=== PATIENT | female | born 1960 | race Caucasian/White ===

== ENCOUNTER → 2016-09-28 | Outpatient (CLI) | payer OTHER, MEDICARE ==
[~2016-09-28] MED LIST: ATR25 PO; CHOLTAB3 PO; COEN75CA PO; COQ10; CPR250 PO; CYAN100T PO; DSWCR; FISHCAP2 PO; MAGN250T9 PO; MAGNESIUM; MULT-506 PO; OXYC7.5T78 PO; PRAV20TA PO; PRN10125 PO; TRIA0.0216
== END | disposition home or self-care (01) ==
LOC: C.PATHSPEC 17:49
PROVIDERS: ATTEND Plastic Surgery
DX: C43.9 Malignant melanoma of skin, unspecified (principal); L82.1 Other seborrheic keratosis; D22.9 Melanocytic nevi, unspecified

== ENCOUNTER 2017-12-21 19:43 | Emergency (ER) | payer OTHER, MEDICARE ==
[~2017-12-21] VITALS: Ht 129.5 cm; Wt 80.7 kg
[~2017-12-21 19:43] MED LIST changes: +CIPR250T26 PO; -CPR250 PO; -DSWCR; +DSWCR TD
[2017-12-21 19:55] VITALS: TEMP 37; Ht 129.5 cm; Wt 80.7 kg
[2017-12-21] MEDS ORDERED: HYDR-3124 PO (20:48)
[2017-12-21] MEDS ORDERED: LSN/10125 PO (20:48)
[2017-12-21] MEDS ORDERED: TRMO2580 TOP (20:48)
[2017-12-21] MEDS ORDERED: CITA40TA4 PO (20:48)
[2017-12-21] MEDS ORDERED: GLC/500 PO (20:48)
[2017-12-21] MEDS ORDERED: ERGO1TAB10 PO (20:48)
--- NOTE | 2017-12-21 20:52 | DIAGNOSTIC IMAGING REPORT ---
CT SCAN OF THE BRAIN WITHOUT IV CONTRAST CLINICAL HISTORY: Head injury. COMPARISON STUDY: CT of the brain dated 08/13/2008. TECHNIQUE: Unenhanced axial CT scan of the brain is performed from the vertex to the skull base. A dose lowering technique was utilized adhering to the principles of ALARA. CT DOSE: 614.27 mGy.cm FINDINGS: Brain parenchyma: The brain parenchyma is normal in appearance. There is no hemorrhage, mass effect, or evidence of acute territorial ischemia by CT criteria. Reddy-white matter is preserved. No extra-axial fluid collection is seen. Ventricles, sulci, cisterns: Normal in configuration. Intracranial vasculature: The visualized intracranial vasculature at the skull base is normal in appearance. Calvarium: The skeletal structures are osteopenic. No depressed calvarial fracture is seen. Sinuses and mastoids: A retention cyst is noted in the left maxillary antrum. The remaining visualized paranasal sinuses are clear. The mastoid air cells are well pneumatized. Orbits: The bony orbits are grossly intact. Bilateral retinal calcifications are noted. IMPRESSION: There is no hemorrhage, mass effect, or evidence of acute territorial ischemia by CT criteria. Electronically signed by: Rasheed Taylor M.D. 12/21/2017 8:50 PM Dictated Date/Time: 12/21/2017 8:47 PM
--- NOTE | 2017-12-21 20:59 | EMERGENCY ROOM VISIT NOTE ---
History Report prepared by Eric: Kamala Javed Under the Supervision of: Dr. Emmanuel Harrington D.O. 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 The patient presents to the ED by EMS. She was standing in her bedroom with her walker. She was turning when her ankles gave out. She fell and hit her head on the bed. She fell to the floor and broke her glasses. She currently feels well. Her hands are tingling which she has periodically. Her right foot is cramping. She notes that she has been having a difficult time getting into cars recently. She denies any LOC. She lives alone. 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 Review of Systems See HPI for pertinent positives & negatives. A total of 10 systems reviewed and were otherwise negative. Past Medical & Surgical Medical Problems: (1) Achondroplastic dwarfism (2) Chest pain radiating to arm (3) Heart problem (4) History of back problems (5) HLD (hyperlipidemia) (6) HTN (hypertension) (7) Leucocytosis Surgical Problems: (1) H/O laminectomy (2) S/P bilateral breast reduction Family History FH: breast cancer in first degree relative Heart disease Social History Smoking Status: Never Smoker Alcohol Use: none Marital Status: single Housing Status: lives alone Occupation Status: disabled Current/Historical Medications Scheduled Citalopram (Citalopram Hydrobromide), 1 TAB PO DAILY Coenzyme Q10 (Ubidecarenone) (Co Q-10), 1 TAB PO DAILY Cyanocobalamin (Vitamin B-12), 100 MCG PO DAILY Desonide 0.05% (Desowen 0.05%), 1 APPLN TD BID Ergocalciferol (Vitamin D2), 400 UNITS PO QAM Fish Oil-Coenzyme Q10 (Fish Oil Plus Co Q-10), 1 CAP PO DAILY Hctz/Lisinopril (Lisinopril/Hctz 10/12.5 Mg), 1 TAB PO QAM Magnesium (Magnesium), 250 MG PO DAILY Metformin Hcl (Glucophage), 500 MG PO BIDM Multivitamin (Multivitamin), 1 TAB PO DAILY Pravastatin (Pravachol ), 40 MG PO HS Triamcinolone Acetonide (Topic (Triamcinolone Acet 0.025%), 1 APPLN TOP BID Scheduled PRN Hydroxyzine Hcl (Atarax), 25 MG PO DIRECTED PRN for PRN Allergies Coded Allergies: Penicillins (Verified Allergy, Mild, RASH, 12/21/17) Amoxicillin (Verified Allergy, Unknown, -, 12/21/17) Clavulanic Acid (Verified Allergy, Unknown, -, 12/21/17) Dexamethasone (Verified Allergy, Unknown, unknown, 12/21/17) Latex (Verified Allergy, Unknown, UNKNOWN, 12/21/17) Neomycin (Verified Allergy, Unknown, unknown, 12/21/17) Polymyxin B (Verified Allergy, Unknown, unknown, 12/21/17) Rizatriptan (Verified Allergy, Unknown, -, 12/21/17) Gabapentin (Verified Adverse Reaction, Intermediate, dizziness, lightheaded, 12/21/17) per pt report today Physical Exam Vital Signs Date Time Temp Pulse Resp B/P (MAP) Pulse Ox O2 Delivery O2 Flow Rate FiO2 12/21/17 21:01 99 16 110/86 97 Room Air 12/21/17 19:57 109 118/71 99 102 117/66 120 132/82 12/21/17 19:57 103 12/21/17 19:55 37.0 109 16 118/71 97 Room Air Physical Exam CONSTITUTIONAL/VITAL SIGNS: Reviewed / noted above. GENERAL: Non-toxic in appearance. INTEGUMENTARY: Warm, dry, and [place]. HEAD: Small contusion to the left forehead. EYES: without scleral icterus or trauma. ENT/OROPHARYNX: clear and moist. LYMPHADENOPATHY/NECK: Is supple without lymphadenopathy or meningismus. RESPIRATORY: Lungs clear and equal. CARDIOVASCULAR: Regular rate and rhythm. GI/ABDOMEN: Soft and nontender. No organomegaly or pulsatile mass. No rebound or guarding. Normal bowel sounds. EXTREMITIES: Warm and well perfused. BACK: No CVA tenderness. NEUROLOGICAL: Intact without focal deficits. PSYCHIATRIC: normal affect. MUSCULOSKELETAL: Normally developed with good muscle tone. Medical Decision & Procedures ER Provider Diagnostic Interpretation: Radiology results as stated below per my review and radiologist interpretation: CT SCAN OF THE BRAIN WITHOUT IV CONTRAST CLINICAL HISTORY: Head injury. COMPARISON STUDY: CT of the brain dated 08/13/2008. TECHNIQUE: Unenhanced axial CT scan of the brain is performed from the vertex to the skull base. A dose lowering technique was utilized adhering to the principles of ALARA. CT DOSE: 614.27 mGy.cm FINDINGS: Brain parenchyma: The brain parenchyma is normal in appearance. There is no hemorrhage, mass effect, or evidence of acute territorial ischemia by CT criteria. Reddy-white matter is preserved. No extra-axial fluid collection is seen. Ventricles, sulci, cisterns: Normal in configuration. Intracranial vasculature: The visualized intracranial vasculature at the skull base is normal in appearance. Calvarium: The skeletal structures are osteopenic. No depressed calvarial fracture is seen. Sinuses and mastoids: A retention cyst is noted in the left maxillary antrum. The remaining visualized paranasal sinuses are clear. The mastoid air cells are well pneumatized. Orbits: The bony orbits are grossly intact. Bilateral retinal calcifications are noted. IMPRESSION: There is no hemorrhage, mass effect, or evidence of acute territorial ischemia by CT criteria. Electronically signed by: Rasheed Taylor M.D. 12/21/2017 8:50 PM Dictated Date/Time: 12/21/2017 8:47 PM ECG Per My Interpretation Indication: other (fall) Rate (beats per minute): 98 Rhythm: sinus with SA Findings: no ectopy, other (no ST elevation) ED Course 2014: Previous medical records were reviewed. The patient was evaluated in room C10. A complete history and physical examination was performed. 2104: On reevaluation, the patient is resting comfortably. I discussed the results and findings with the patient. She verbalized agreement of the treatment plan. She was discharged home. Medical Decision Differentials include: Close head injury, intracranial bleed, facial trauma, cervical spine trauma, chest and thoracic trauma, abdominal and intra-abdominal trauma, spine neurologic trauma, and extremity trauma. This is a 57-year-old female who presents to the ED with a chief complaint of a fall and striking her head. The patient states that her ankles gave out when she was turning causing her to fall hitting her head on the bed frame. She has a small bump on the forehead on the left. The patient denies loss of consciousness. She denies any other injuries. She does have a small contusion left forehead region on exam. Her vital signs are stable. Her exam was otherwise unremarkable. CT scan of the brain did not show acute process. She is felt to be stable for discharge. Head Trauma GCS Score: 15 Medication Reconcilliation Current Medication List: was personally reviewed by me Blood Pressure Screening Patient's blood pressure: Normal blood pressure Blood pressure disposition: Did not require urgent referral Impression Primary Impression: Fall Additional Impression: Head trauma Scribe Attestation The scribe's documentation has been prepared under my direction and personally reviewed by me in its entirety. I confirm that the note above accurately reflects all work, treatment, procedures, and medical decision making performed by me. Departure Information Dispostion Home / Self-Care Referrals No Doctor, Assigned (PCP) Patient Instructions My [facility] Additional Instructions CAT scan did not show brain injury or intracranial bleeding. Follow-up with your doctor for further care and evaluation in 1-2 days as needed. Return to the emergency department for worsening or new symptoms or any concerns. You have been examined and treated today on an emergency basis only. This is not a substitute for, or an effort to provide, complete comprehensive medical care. It is impossible to recognize and treat all injuries or illnesses in a single emergency department visit. It is therefore important that you follow up closely with your doctor. Call as soon as possible for an appointment. Problem Qualifiers
[2017-12-21 21:01] VITALS: PULSE 99
[2017-12-21 21:42] VITALS: BP 137/79; O2SAT 96
== END 2017-12-21 21:42 | disposition home or self-care (01) ==
LOC: C.EDC 19:43
DX: S00.93XA Contusion of unspecified part of head, initial encounter (principal); W01.198A Fall on same level from slipping, tripping and stumbling with subsequent striking against other object, initial encounter; R40.2412 Glasgow coma scale score 13-15, at arrival to emergency department; I10 Essential (primary) hypertension; E78.5 Hyperlipidemia, unspecified; Z79.84 Long term (current) use of oral hypoglycemic drugs; Z79.899 Other long term (current) drug therapy; Z88.0 Allergy status to penicillin; Z88.1 Allergy status to other antibiotic agents; Z88.8 Allergy status to other drugs, medicaments and biological substances; Z88.6 Allergy status to analgesic agent; Z91.040 Latex allergy status

== ENCOUNTER 2018-03-13 09:13 | Emergency (ER) | payer OTHER, MEDICARE ==
[~2018-03-13 09:13] MED LIST changes: -ATR25 PO; -CHOLTAB3 PO; -CIPR250T26 PO; +CITA20TA9 PO; -COQ10; +ERGO1TAB10 PO; +FLUT0.15 NAE; +GLC/500 PO; +LISI20TA9 PO; -MAGN250T9 PO; +MAGN500C PO; -MAGNESIUM; +OXYC-57 PO; -OXYC7.5T78 PO; -PRN10125 PO; -TRIA0.0216; +TRMO2580 TOP
[2018-03-13 09:21] VITALS: TEMP 36.9
[2018-03-13] MEDS ORDERED: LIDOCAINE 1% BUFFERED INJ 20 ML VIAL ONE (09:56)
[2018-03-13] MEDS ORDERED: LIDOCAINE/EPINEPHRINE 1% 20 ML VIAL INFIL ONE (10:00)
[2018-03-13 11:20] VITALS: BP 135/70; PULSE 93; O2SAT 96
--- NOTE | 2018-03-13 15:45 | EMERGENCY ROOM VISIT NOTE ---
History Report prepared by Eric: Oscar Skinner Under the Supervision of: Dr. Philipp Tafoya D.O. First contact with patient: 09:36 Chief Complaint: WOUND INFECTION Stated Complaint: HUGE BOIL ON BACK Nursing Triage Summary: wound on back for the past 2 weeks. taking bactrim since tuesday History of Present Illness The patient is a 57 year old female who presents to the Emergency Room with complaints of a constant boil on her back beginning 2 weeks ago. The patient reports that she saw her PCP, Dr. Hugh Soto for it. She states that it was punctured and drained, and that she was prescribed Bactrim that she began 5 days ago. The patient reports that it appeared to be a blackhead 2 months ago. She states that it "exploded" last night. The patient also notes that she was in [facility] last month for a back surgery. Pt denies headache, change in vision, fevers, chest pain, shortness of breath, nausea, vomiting, diarrhea, and pain with urination. Source of History: patient Onset: 2 weeks ago Position: back Quality: other (boil) Timing: constant Associated Symptoms: No fevers, No nausea, No vomiting, No diarrhea Review of Systems See HPI for pertinent positives & negatives. A total of 10 systems reviewed and were otherwise negative. Past Medical & Surgical Medical Problems: (1) Achondroplastic dwarfism (2) Cervical myelopathy (3) Cervical stenosis of spinal canal (4) Chest pain radiating to arm (5) Heart problem (6) History of back problems (7) HLD (hyperlipidemia) (8) HTN (hypertension) (9) Leucocytosis Surgical Problems: (1) H/O laminectomy (2) S/P bilateral breast reduction Family History FH: breast cancer in first degree relative Heart disease Social History Smoking Status: Never Smoker Alcohol Use: none Drug Use: none Marital Status: single Housing Status: lives alone Occupation Status: disabled Current/Historical Medications Scheduled Citalopram Hydrobromide (Celexa), 20 MG PO DAILY Coenzyme Q10 (Ubidecarenone) (Co Q-10), 1 TAB PO DAILY Cyanocobalamin (Vitamin B-12), 100 MCG PO DAILY Desonide 0.05% (Desowen 0.05%), 1 APPLN TD BID Ergocalciferol (Vitamin D2), 400 UNITS PO QAM Fish Oil-Coenzyme Q10 (Fish Oil Plus Co Q-10), 1 CAP PO DAILY Fluticasone Propionate (Nasal) (Flonase Allergy Relief), 2 SPRAYS JOCELIN DAILY Hctz/Lisinopril (PRINZIDE 20/12.5 Mg), 1 TAB PO BID Magnesium Oxide (Mg Supplement (Magnesium), 500 MG PO BID Metformin Hcl (Glucophage), 500 MG PO BIDM Multivitamin (Multivitamin), 1 TAB PO DAILY Pravastatin (Pravachol ), 20 MG PO HS Triamcinolone Acetonide (Topic (Triamcinolone Acet 0.025%), 1 APPLN TOP BID Scheduled PRN Oxycodone/Acetaminophen 5MG/325MG (Percocet 5MG/325MG), 1-2 TAB PO Q4H PRN for MODERATE TO SEVERE PAIN Allergies Coded Allergies: Penicillins (Verified Allergy, Mild, RASH, 03/13/18) Amoxicillin (Verified Allergy, Unknown, -, 03/13/18) Clavulanic Acid (Verified Allergy, Unknown, -, 03/13/18) Dexamethasone (Verified Allergy, Unknown, unknown, 03/13/18) Latex (Verified Allergy, Unknown, UNKNOWN, 03/13/18) Neomycin (Verified Allergy, Unknown, unknown, 03/13/18) Polymyxin B (Verified Allergy, Unknown, unknown, 03/13/18) Rizatriptan (Verified Allergy, Unknown, -, 03/13/18) Gabapentin (Verified Adverse Reaction, Intermediate, dizziness, lightheaded, 03/13/18) per pt report today Physical Exam Vital Signs Date Time Temp Pulse Resp B/P (MAP) Pulse Ox O2 Delivery O2 Flow Rate FiO2 03/13/18 11:20 93 18 135/70 96 03/13/18 09:21 36.9 103 18 124/73 97 Room Air Physical Exam GENERAL: Lying on left side in bed, no acute distress EYE EXAM: normal conjunctiva. OROPHARYNX: no exudate, no erythema, lips, buccal mucosa, and tongue normal and mucous membranes are moist NECK: supple, no nuchal rigidity, no adenopathy, non-tender LUNGS: Clear to auscultation. Normal chest wall mechanics HEART: no murmurs, S1 normal and S2 normal ABDOMEN: abdomen soft, non-tender, normo-active bowel sounds, no masses, no rebound or guarding. BACK: Back is symmetrical on inspection and there is no midline tenderness, no CVA tenderness. Small fluctuant area in the middle left thoracic region with green purulence on palpation is noted. Bedside Ultrasound shows a 0.5 x 1.5 cm area of fluid collection. SKIN: no rashes and no bruising UPPER EXTREMITIES: upper extremities are grossly normal. LOWER EXTREMITIES: No pitting edema. NEURO EXAM: Normal sensorium, cranial nerves II-XII grossly intact, normal speech, no gross weakness of arms, no gross weakness of legs. Medical Decision & Procedures Procedure Incision & Drainage Indication: Abscess. Location: Left midthoracic back Verbal consent was obtained after the risks and benefits were explained, including but not limited to bleeding, scarring, infection, pain, and bone/joint /nerve damage. At this time, the risks of the procedure are less than the risks of NOT performing the procedure. A time out was taken and the correct patient and site identified. The skin was prepped with betadine and a sterile field set. The wound was anesthetized with 3 ml of 1% lidocaine without epinephrine. The abscess cavity was entered with a number 11 blade and green purulent material expressed. Copious irrigation was performed using normal saline. The wound was explored for foreign bodies and none found. Debridement was not performed. Detailed wound care instructions and signs and symptoms of worsening infection reviewed with the patient. No complications and the patient tolerated the procedure well. ED Course ED COURSE: Vital signs were reviewed and showed tachycardic heart rate The patients medical record was reviewed The above diagnostic studies were performed and reviewed. ED treatments and interventions as stated above. 0948: The patient was evaluated in room B7. A complete history and physical examination was performed. 1000: Ordered Lidocaine/Epinephrine 20 ml INFIL 1050: I performed an Incision and Drainage on the patient. 1110: Upon reevaluation, the patient is resting. I discussed my findings with the patient and she understands and agrees with the treatment plan. Based on the patients age, coexisting illnesses, exam and lab findings the decision to treat as an inpatient was made. The patient remained stable while under my care. The patient appeared well at the time of discharge. Medical Decision Differential diagnosis: Etiologies such as cellulitis, abscess, MRSA infection, DVT, necrotizing fasciitis, dermatitis, drug eruption, as well as others were entertained. Patient is a 57-year-old female who presents to the ER for abscess on her back. She has had this previously opened up but notes last night she had a large amount of green purulent discharge from it. Patient has no other complaints at this time. Abscess was opened and I&D performed at bedside by myself. I encouraged her to continue her antibiotics. I perform the I&D as the bedside ultrasound did clearly show a small loculation which was opened up. Patient tolerated the procedure well. There is no other complications. Patient was discharged to follow-up with PCP as an outpatient.Discussed with Pt concerning signs and symptoms to watch out for. Pt was instructed to follow up with their PCP and discussed with the patient their option to return to the ED at anytime for persistent or worsening symptoms. The appropriate anticipatory guidance and out-patient management, including indications for return to the emergency department, were explained at length to the patient and understood. Medication Reconcilliation Current Medication List: was personally reviewed by me Blood Pressure Screening Patient's blood pressure: Normal blood pressure Blood pressure disposition: Did not require urgent referral Impression Primary Impression: Abscess Scribe Attestation The scribe's documentation has been prepared under my direction and personally reviewed by me in its entirety. I confirm that the note above accurately reflects all work, treatment, procedures, and medical decision making performed by me. Departure Information Dispostion Home / Self-Care Referrals Geno Crenshaw M.D. (PCP) Forms HOME CARE DOCUMENTATION FORM, IMPORTANT VISIT INFORMATION, WORK / SCHOOL INSTRUCTIONS Patient Instructions My [facility] Additional Instructions Please follow up with your primary care doctor with in the next 24 hours. Any worsening of your symptoms, please return to the ED immediately. This includes any fevers greater than 100.4, worsening pain, chest pain, shortness breath, persistent nausea, vomiting, unable to eat or drink, or any other concerning signs or symptoms from your standpoint. Please continue your antibiotics as previously prescribed. Please make sure that you follow-up with your PCP within the next 3 days. He should follow-up with dermatology within the next 2 weeks.
== END 2018-03-13 11:20 | disposition home or self-care (01) ==
LOC: C.EDB 09:14
DX: L02.91 Cutaneous abscess, unspecified (principal); Q77.4 Achondroplasia; I10 Essential (primary) hypertension; E78.5 Hyperlipidemia, unspecified; Z79.84 Long term (current) use of oral hypoglycemic drugs; Z79.899 Other long term (current) drug therapy; Z88.0 Allergy status to penicillin; Z91.040 Latex allergy status; Z88.8 Allergy status to other drugs, medicaments and biological substances